=== PATIENT | male | born 1965 | race Caucasian/White ===

== ENCOUNTER 2021-01-17 16:11 | Observation (INO) ==
[2021-01-17] MEDS ORDERED: NS 1000 ML 1,000 ML ONE (17:35)
[2021-01-17] MEDS: NS 1000 ML 1,000 ML IV SCH (17:38)
[2021-01-17 18:00] LABS: ALANINE AMINOTRANSFERASE 28 Units/L (12-78); ALBUMIN 3.8 g/dL (3.4-5.0); ALKALINE PHOSPHATASE 43 Units/L (46-116); ASPARTATE AMINO TRANSFERASE 39 Units/L (15-37); BLOOD UREA NITROGEN 19 mg/dL (7-18); CALCIUM 8.7 mg/dL (8.5-10.1); CARBON DIOXIDE 28.7 mmol/L (21-32); CHLORIDE 98 mmol/L (98-107); CKMB % 0.8 % (<4); CREATINE KINASE 129 Units/L (39-308); CREATINE KINASE MB < 1.0 ng/mL (0-4.0); CREATININE 1.31 mg/dL (0.70-1.30); TOTAL PROTEIN 7.7 g/dL (6.4-8.2); TROPONIN I < 0.02 ng/mL (0-1.5); eGFR NON BLACK RACES > 60 (>60)
[2021-01-17 18:04] LABS: BASOPHILS # (AUTO) 0.1 X10^3/uL (0.0-0.1); BASOPHILS % (AUTO) 0.6 % (0.2-1.0); EOSINOPHILS # (AUTO) 0.1 x10^3/uL (0.0-0.2); EOSINOPHILS % (AUTO) 0.6 % (0.9-2.9); HEMATOCRIT 53.9 % (42.0-54.0); LYMPHOCYTES % (AUTO) 17.7 % (21.0-51.0); MEAN CORPUSCULAR HEMOGLOBIN 31.9 pg (27.0-34.0); MEAN CORPUSCULAR HGB CONC 35.2 g/dL (33.0-35.0); MEAN CORPUSCULAR VOLUME 90.7 fL (80.0-100.0); MEAN PLATELET VOLUME 8.2 fL (7.4-11.0); MONOCYTES # (AUTO) 0.6 x10^3/uL (0.3-0.8); NEUTROPHILS # (AUTO) 8.4 x10^3/uL (2.2-4.8); NEUTROPHILS % (AUTO) 76.1 % (42.0-75.0); PLATELET COUNT 238 X10^3/uL (150.0-450.0); RED BLOOD COUNT 5.94 X10^6/uL (4.7-6.0); RED CELL DISTRIBUTION WIDTH 14.2 % (11.6-16.5)
[2021-01-17 18:14] LABS: SODIUM 136 mmol/L (136-145)
[2021-01-17 18:35] LABS: PLATELET MORPHOLOGY COMMENT ABNORMAL (NORMAL)
[2021-01-17 20:14] LABS: BILIRUBIN,URINE NEGATIVE (NEGATIVE); BLOOD/HEMOGLOBIN,URINE 1+ (NEGATIVE); GLUCOSE, URINE 1+ (NEGATIVE); KETONES,URINE NEGATIVE (NEGATIVE); LEUKOCYTE ESTERASE ,URINE NEGATIVE (NEGATIVE); NITRITES,URINE NEGATIVE (NEGATIVE); PROTEIN,URINE NEGATIVE (NEGATIVE); UROBILINOGEN,URINE NORMAL (NORMAL)
[2021-01-17 20:29] LABS: APPEARANCE,URINE CLEAR (CLEAR); COLOR,URINE YELLOW (YELLOW)
[2021-01-17 20:30] LABS: BACTERIA,URINE NEGATIVE /HPF (NEGATIVE); RBC,URINE NONE SEEN /HPF (0-3); SQUAMOUS EPITHELIAL CELL,UR RARE /HPF (NEGATIVE)
[2021-01-17] MEDS ORDERED: TYLENOL 325 MG TAB PO PRN (22:04)
[2021-01-17] MEDS ORDERED: TYLENOL 325 MG TAB PO ONE (22:11)
[2021-01-17 23:08] LABS: CKMB % 0.7 % (<4); CREATINE KINASE 144 Units/L (39-308); CREATINE KINASE MB < 1.0 ng/mL (0-4.0); TROPONIN I < 0.02 ng/mL (0-1.5)
[2021-01-18] MEDS: NS 1000 ML 1,000 ML IV SCH ×2 (06:02→22:45)
[2021-01-18 06:39] LABS: BASOPHILS % (AUTO) 0.3 % (0.2-1.0); EOSINOPHILS % (AUTO) 0.1 % (0.9-2.9); HEMATOCRIT 52.8 % (42.0-54.0); LYMPHOCYTES # (AUTO) 2.2 X10^3/uL (1.3-2.9); LYMPHOCYTES % (AUTO) 19.6 % (21.0-51.0); MEAN CORPUSCULAR HEMOGLOBIN 31.4 pg (27.0-34.0); MEAN CORPUSCULAR HGB CONC 34.2 g/dL (33.0-35.0); MEAN CORPUSCULAR VOLUME 92.1 fL (80.0-100.0); MEAN PLATELET VOLUME 7.7 fL (7.4-11.0); MONOCYTES # (AUTO) 0.7 x10^3/uL (0.3-0.8); MONOCYTES % (AUTO) 5.7 % (0.0-13.0); NEUTROPHILS # (AUTO) 8.4 x10^3/uL (2.2-4.8); NEUTROPHILS % (AUTO) 74.3 % (42.0-75.0); PLATELET COUNT 231 X10^3/uL (150.0-450.0); RED BLOOD COUNT 5.74 X10^6/uL (4.7-6.0); RED CELL DISTRIBUTION WIDTH 13.9 % (11.6-16.5); WHITE BLOOD COUNT 11.4 X10^3/uL (3.6-10.0)
[2021-01-18 07:00] LABS: ALANINE AMINOTRANSFERASE 30 Units/L (12-78); ALBUMIN 3.6 g/dL (3.4-5.0); ALKALINE PHOSPHATASE 42 Units/L (46-116); ASPARTATE AMINO TRANSFERASE 26 Units/L (15-37); BLOOD UREA NITROGEN 17 mg/dL (7-18); CALCIUM 8.6 mg/dL (8.5-10.1); CARBON DIOXIDE 27.6 mmol/L (21-32); CHLORIDE 100 mmol/L (98-107); CKMB % 0.8 % (<4); COR NA(FOR HYPERGLY) 137 mmol/L (136-145); CREATINE KINASE 133 Units/L (39-308); CREATINE KINASE MB < 1.0 ng/mL (0-4.0); CREATININE 1.39 mg/dL (0.70-1.30); SODIUM 136 mmol/L (136-145); TOTAL PROTEIN 7.3 g/dL (6.4-8.2); TROPONIN I < 0.02 ng/mL (0-1.5); eGFR NON BLACK RACES 56 (>60)
[2021-01-18] MEDS: ZINC SULFATE PO SCH ×2 (11:48→21:30)
[2021-01-18] MEDS: TOPROL XL PO SCH (11:48)
[2021-01-18] MEDS: TRICOR TAB 48 MG PO SCH (11:49)
[2021-01-18] MEDS: SOLU-Medrol 40 MG VIAL IVP SCH ×3 (11:49→21:30)
[2021-01-18] MEDS: TAB-A-VITE PO SCH (11:49)
[2021-01-18] MEDS: ANTIVERT TAB 25 MG PO PRN ×2 (11:50→21:30)
--- NOTE | 2021-01-18 12:00 | DR.H&P ---
H&P - History & Physical for Day of: H&P Date: 01/17/21 - Chief Complaint Chief Complaint: RIGHT ARM AND HAND NUMBNESS/TINGLING, INTRACTABLE RIGHT SIDED FRONTAL HEADACHE, ATAXIA, DIZZINESS, AND HICCUPS - History of Present Illness History of Present Illness: IS A 56 YEAR OLD PATIENT OF OURS. PATIENT IS A DIRECT ADMISSION TO THE HOSPITAL. HE PRESENTED WITH COMPLAINTS OF RIGHT ARM AND HAND NUMBNESS/TINGLING, INTRACTABLE RIGHT SIDED FRONTAL HEADACHE, ATAXIA, DIZZINESS, AND HICCUPS. HE WAS EVALUATED AT A HOSPITAL IN [facility] ON SUNDAY NIGHT. HE WAS DIAGNOSED WITH MENIERS DISEASE. HE WAS GIVEN MECLIZINE AND PREDNISONE, BUT DENIES IMPROVEMENT IN SYMPTOMS DESPITE COMPLAINCE WITH MEDICATIONS. PATIENTS SPOUSE REPORTS THAT HE HAS BEEN UNABLE TO WALK OR STAND ON HIS OWN WITHOUT ASSISTANCE DUE TO SEVERE DIZZINESS. HIS PMH INCLUDES: HYPERLIPIDEMIA, HTN. ON ARRIVAL TO THE HOSPITAL, VITALS WERE 98.8-62-20-96%-154/89. LABS WERE OBTAINED. ABNORMAL LAB VALUES INCLUDE THE FOLLOWING: WBC 11.0, HGB 19.0, BUN 19, CREATININE 1.31, AST 39, ALK PHOS 43. CARDIAC ENZYMES WERE WITHIN NORMAL LIMITS. URINALYSIS UNREMARKABLE. COVID, RSV, AND INFLUENZA NEGATIVE. EKG REVEALED SINUS RHYTHM WITH HR 63. HE WAS STARTED ON NS AT 80 ML/HR, SOLU-MEDROL 80MG IV Q8H, MECLIZINE 25MG PO Q6H PRN, AND HIS HOME MEDICATIONS WERE RESUMED. WE PLAN TO OBTAIN A BRAIN MRI. OTHERWISE, WE WILL FOLLOW UP WITH AM LABS AND CONTINUE TO MONITOR. TIME SPENT ON CLINICAL ASSESSMENT, REVIEWING LABS AND IMAGING, DECISION MAKING, AND DOCUMENTATION GREATER THAN 75 MINUTES. - Past Medical History Past Medical History: Dyslipidemia, Hypertension - Past Surgical History Surgical History: Other - Family History Family Medical History: Diabetes Mellitus, Coronary Artery Disease - Social History Does patient currently use any type of tobacco product: No Have you used tobacco products in the last 12 months: No Type of Tobacco Use: None Does any household member use tobacco: No Alcohol Use: None Drug Use: None - Medications Home Medications: No Known Drug Allergies Allergy (Verified 01/17/21 17:24) CONTINUE taking the following medications ascorbic acid (vitamin C) [Vitamin C] 500 mg PO HS 01/17/21 [History] aspirin 325 mg PO HS 01/17/21 [History] cholecalciferol (vitamin D3) [Vitamin D3] 125 mcg PO HS 01/17/21 [History] clonazepam 0.5 mg PO HS 01/17/21 [History] fenofibrate 160 mg PO DAILY 01/17/21 [History] furosemide 20 mg PO DAILY 01/17/21 [History] meclizine 25 mg PO Q6HR PRN 01/17/21 [History] metoprolol succinate 25 mg PO DAILY 01/17/21 [History] multivitamin 1 tab PO DAILY 01/17/21 [History] prednisone 20 mg PO DAILY 01/17/21 [History] simvastatin 20 mg PO HS 01/17/21 [History] zinc 50 mg PO HS 01/17/21 [History] - Review of Systems Constitutional: Weakness Eyes: No Symptoms Reported ENT: No Symptoms Reported Respiratory: No Symptoms Reported Cardiovascular: See HPI, Light Headedness Gastrointestinal: No Symptoms Reported Genitourinary: No Symptoms Reported Musculoskeletal: See HPI Skin: No Symptoms Reported Neurological: See HPI, Weakness, Other (RIGHT ARM TINGLING/NUMBNESS, RIGHT SIDED HEADACHE, ATAXIA ) - Physical Exam Vital Signs: Temperature 98.1 F Pulse Rate [Left] 71 Pulse Rate 66 Respiratory Rate 18 Blood Pressure [Left Arm] 140/69 O2 Sat by Pulse Oximetry 96 Oriented: Normal Eyes: Normal Ear: Normal Nose: Normal Throat: Normal Respiratory: Diminished Throughout Cardiovascular: Normal : Normal Auscultation: Bowel Sounds: Normal Palpation: Normal Tenderness: Normal Skin: Normal Musculoskeletal: Right, Arm, Sensory Deficit (RIGHT ARM TINGLING/NUMBNESS, RIGHT SIDED HEADACHE ), Instability (ATAXIA) Psychiatric: Normal Mood Description: Calm Affect: Normal Speech Pattern: Clear - Assessment/Plan (1) Ataxia Status: Acute Plan: ADMIT, NS AT 80 ML/HR, SOLU-MEDROL 80MG IV Q8H, MECLIZINE 25MG PO Q6H PRN, AND HIS HOME MEDICATIONS WERE RESUMED. OBTAIN BRAIN MRI (2) Numbness and tingling of right upper extremity Status: Acute (3) Intractable headache Qualifiers: Headache type: unspecified Headache chronicity pattern: acute headache Qualified Code(s): R51.9 - Headache, unspecified Status: Acute (4) Dizziness Status: Acute (5) Intractable hiccups Status: Acute - Allergies Allergies/Adverse Reactions: Allergies Allergy/AdvReac Type Severity Reaction Status Date / Time No Known Drug Allergies Allergy Verified 01/17/21 17:24
--- NOTE | 2021-01-18 14:08 | MRI ---
HISTORYSEVERE DIZZINESS, WEAKNESSSTUDYBRAIN W/O CONCOMPARISONNoneTECHNIQUEMultiplanar multi-sequence MRI of the brain was obtained utilizing standard departmental protocol. Sagittal and axial T1 weighted images were obtained. Axial T2 and flair weighted images were performed as well. Axial diffusion weighted and ADC trace mapping was performed.FINDINGSThe midline structures appear unremarkable. The evaluation of the brain parenchyma demonstrates no abnormal signal characteristics to suggest intraparenchymal mass or hemorrhage. No extra-axial fluid collections are observed. The ventricular system appears symmetric and nondilated. The CP angle is normal in its appearance without brainstem mass or evidence for acoustic neuroma. The flow voids on both T1 and T2 weighted imaging appear unremarkable. Evaluation of the diffusion weighted imaging does demonstrate a large area of restricted diffusion in the right cerebellar hemisphere most compatible with acute/subacute with some mild associated cytotoxic edema and mass effect. There is a small left mastoid air cell effusion noted.. The extracranial structures are unremarkable.IMPRESSIONLarge acute/subacute stroke involving the right cerebellar hemisphere as above.Electronically signed by: GEOFF GOOD (Jan 18, 2021 14:06:25)
[2021-01-18] MEDS: PLAVIX PO SCH (15:40)
[2021-01-18] MEDS ORDERED: KLONOPIN TAB 0.5 MG ONE (20:00)
[2021-01-18] MEDS ORDERED: ZOCOR TAB 20 MG PO ONE (20:00)
[2021-01-18] MEDS ORDERED: ASPIRIN ONE (20:00)
[2021-01-18 20:26] LABS: CHOL/HDL RATIO 4.5 (0.0-5.0)
[2021-01-18] MEDS ORDERED: ASPIRIN PO SCH (21:00)
[2021-01-18] MEDS ORDERED: KLONOPIN TAB 0.5 MG PO SCH (21:00)
[2021-01-18] MEDS ORDERED: ZOCOR TAB 20 MG PO SCH (21:00)
[2021-01-18] MEDS ORDERED: VITAMIN C PO SCH (21:00)
[2021-01-18] MEDS ORDERED: VITAMIN D3 125 mcg (5,000 UNITS) PO SCH (21:00)
[2021-01-19] MEDS: SOLU-Medrol 40 MG VIAL IVP SCH ×2 (05:41→13:39)
[2021-01-19 06:39] LABS: BASOPHILS % (AUTO) 0.1 % (0.2-1.0); HEMATOCRIT 49.4 % (42.0-54.0); HEMOGLOBIN 17.1 g/dL (13.5-18.0); LYMPHOCYTES # (AUTO) 2.1 X10^3/uL (1.3-2.9); LYMPHOCYTES % (AUTO) 15.3 % (21.0-51.0); MEAN CORPUSCULAR HEMOGLOBIN 31.3 pg (27.0-34.0); MEAN CORPUSCULAR HGB CONC 34.6 g/dL (33.0-35.0); MEAN CORPUSCULAR VOLUME 90.4 fL (80.0-100.0); MONOCYTES # (AUTO) 0.7 x10^3/uL (0.3-0.8); MONOCYTES % (AUTO) 4.9 % (0.0-13.0); NEUTROPHILS # (AUTO) 10.7 x10^3/uL (2.2-4.8); NEUTROPHILS % (AUTO) 79.7 % (42.0-75.0); PLATELET COUNT 243 X10^3/uL (150.0-450.0); RED BLOOD COUNT 5.46 X10^6/uL (4.7-6.0); RED CELL DISTRIBUTION WIDTH 14.1 % (11.6-16.5); WHITE BLOOD COUNT 13.4 X10^3/uL (3.6-10.0)
[2021-01-19 07:08] LABS: ALANINE AMINOTRANSFERASE 65 Units/L (12-78); ALBUMIN 3.2 g/dL (3.4-5.0); ALKALINE PHOSPHATASE 37 Units/L (46-116); ASPARTATE AMINO TRANSFERASE 43 Units/L (15-37); BLOOD UREA NITROGEN 20 mg/dL (7-18); CALCIUM 8.3 mg/dL (8.5-10.1); CARBON DIOXIDE 25.6 mmol/L (21-32); CHLORIDE 101 mmol/L (98-107); COR CA(FOR HYPOALB) 8.9 mg/dL (8.5-10.1); COR NA(FOR HYPERGLY) 137 mmol/L (136-145); CREATININE 1.21 mg/dL (0.70-1.30); SODIUM 136 mmol/L (136-145); TOTAL PROTEIN 6.7 g/dL (6.4-8.2); eGFR NON BLACK RACES > 60 (>60)
[2021-01-19] MEDS: TRICOR TAB 48 MG PO SCH (08:29)
[2021-01-19] MEDS: TOPROL XL PO SCH (08:29)
[2021-01-19] MEDS: TAB-A-VITE PO SCH (08:29)
[2021-01-19] MEDS: PLAVIX PO SCH (08:36)
[2021-01-19] MEDS: NS 1000 ML 1,000 ML IV SCH ×2 (09:56→12:19)
[2021-01-19] MEDS: BENTYL CAP 10 MG PO SCH ×2 (10:24→12:03)
[2021-01-19 12:05] VITALS: BP 141/67
--- NOTE | 2021-01-19 14:32 | VAS ---
HISTORYACUTE CVA/TIA SYMPTOMSConcern for carotid artery stenosis.EXAM: BILATERAL DOPPLER CAROTID ULTRASOUND EXAMTechnique: Multiple posey scale and color flow Doppler images of the right and left carotid arterial system were obtained. The vertebral arterial system was evaluated as well.Findings:Nonocclusive color flow Doppler is seen throughout the right and left carotid arterial system. Abnormally elevated velocities are seen within the left CCA in the 50-69 percent stenosis range. There is [id number] bilateral carotid atherosclerosis and mixed atherosclerotic plaque formation of the bilateral carotid bulbs and ICAs with associated intimal thickening but [without] evidence for high-grade stenosis (>70%) or occlusion of the carotid arteries. The right and left vertebral artery demonstrate antegrade flow.IMPRESSION:Abnormally elevated Doppler carotid velocities are seen in the left CCA in the 50-69% stenosis range.[id number] bilateral carotid atherosclerosis and mixed atherosclerotic plaque formation of the bilateral carotid bulbs and in both ICAs with [id number] associated carotid intimal thickening but without evidence for any additional high-grade stenosis or occlusion of the carotid arteries, based on Doppler velocity criteria.Appropriate, antegrade, vertebral arterial flow.Peak right ICA velocity: 105 centimeter/seconds.Peak right CCA velocity: 123 centimeter/seconds.Peak left ICA velocity: 102 centimeter/seconds.Peak left CCA velocity: 161 centimeter/seconds.Right ICA to CCA ratio: 1.4.Left ICA to CCA ratio: 1.3.Electronically signed by: MATT KOWALSKI III (Jan 19, 2021 14:30:45)
== END 2021-01-19 16:10 | disposition home or self-care (01) ==
LOC: U → OBS 17:41
PROVIDERS: ADMIT Internal Medicine; ATTEND Internal Medicine
DX: I10 Essential (primary) hypertension; H81.09 Meniere's disease, unspecified ear; R51.9 Headache, unspecified; Z20.822 Contact with and (suspected) exposure to COVID-19; R20.0 Anesthesia of skin; I63.89 Other cerebral infarction; E78.2 Mixed hyperlipidemia; R27.8 Other lack of coordination; R06.6 Hiccough